=== PATIENT | female | born 1950 | race African-American/Black ===

== ENCOUNTER 2021-05-30 12:27 | Emergency (ER) | payer BC ==
[~2021-05-30] VITALS: Ht 160 cm; Wt 99.1 kg
[2021-05-30 12:54] VITALS: BP 127/88
== END 2021-05-30 13:26 | disposition home or self-care (01) ==
LOC: ER 12:29
DX: D17.30 Benign lipomatous neoplasm of skin and subcutaneous tissue of unspecified sites (principal); M77.12 Lateral epicondylitis, left elbow
CPT/HCPCS: 99281